=== PATIENT | female | born 1985 | race Caucasian/White ===

== ENCOUNTER 2024-04-28 02:10 | Emergency (ER) | payer OTHER, SELFPAY ==
[2024-04-28 02:27] VITALS: BP 131/85; PULSE 97; RESP 16; TEMP 36.6; O2SAT 98
[2024-04-28 03:29] LABS: Appearance Urine Clear (Clear); Bacteria Urine Rare /hpf; Bilirubin Urine Negative (Negative); Blood Urine Negative (Negative); Color Urine Yellow (Yellow); Glucose Urine UA Negative (Negative); Ketones Urine Negative (Negative); Leukocyte Esterase Ur 2+ LEU/UL (Negative); Nitrate Urine Negative (Negative); Non Pathogenic Casts 0-2; Protein Urine Negative (Negative); Specific Grav Ur 1.027 (1.001-1.035); Squamous Epithelial Cell Urine Few /hpf (Few); WBC Urine 21-50 /hpf (0-3)
[2024-04-28 03:30] LABS: Add Urine Microscopic? YES
[2024-04-28 03:43] LABS: BEDSIDEPREGUCG Negative
--- NOTE | 2024-04-28 05:28 | ED.FEMALEGU ---
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 She thought it was a Bartholin gland cyst based on Internet search. History of trichomonas that was treated and HPV with a normal colposcopy. Sexually active with 1 male partner in the last month. No condom use. Has had symptoms since 04/06/24 which was her LMP. She is having dysuria, urgency and frequency without hematuria. No fevers. Did have one of the areas with some drainage. Having back ache. Related Data Allergies Allergy/AdvReac Type Severity Reaction Status Date / Time No Known Allergies Allergy Unverified 03/04/15 14:56 [facility] Past Medical History Medical History History of human papilloma virus History of trichomoniasis Normal colposcopy Exam Narrative: GENERAL: Well-appearing, well-nourished, and in no acute distress. HEAD: Normocephalic, atraumatic. EYES: Non injected, non icteric ENT: Nares clear, no rhinorrhea or epistaxis. NECK: Supple. CHEST: Speaking in full sentences. No respiratory distress. HEART: Regular rate and rhythm. . ABDOMEN: Soft, nondistended. : No CVA tenderness. Pelvic exam performed with RN as casework supervisor/chemistry research assistant. No cyst/abscess consistent with Bartholin gland involvement but there is a an area of slight firmness at the 7 o'clock position distal to labial structures, without the induration of a clear abscess amenable to drainage. Also has an area of ulceration/fissure in this area. No herpetic lesions. Thick White creamy vaginal discharge in vaginal vault concerning for yeast. Bimanual exam without cervical motion tenderness or adnexal tenderness. EXTREMITIES/BACK: Normal range of motion. No edema. Patient complaining of low back pain (lumbarsacral) and into buttocks. No TTP midline. SKIN: Warm, dry, no rash. NEURO: No focal deficits. Alert and oriented x3. PSYCH: Normal mood and affect. Course Vital Signs Vital signs: Vital Signs Temperature 97.8 F 04/28/24 02:27 Pulse Rate 97 04/28/24 02:27 Respiratory Rate 16 04/28/24 02:27 Blood Pressure 131/85 04/28/24 02:27 Pulse Oximetry 98 04/28/24 02:27 Oxygen Delivery Room Air 04/28/24 02:27 Temperature 97.8 F 04/28/24 02:27 Pulse Rate 72 04/28/24 07:23 Respiratory Rate 16 04/28/24 07:23 Blood Pressure 132/84 04/28/24 07:23 Pulse Oximetry 99 04/28/24 07:23 Oxygen Delivery Room Air 04/28/24 02:27 MDM - Female Genitourinary MDM Narrative Medical decision making narrative: 39 yo female who presents with vaginal discharge and a genital lesion with pain as well as dysuria, urgency, and frequency. Sexually active 1 male partner in the past month without condom use. In the ED she is afebrile with VS that are within normal limits. Lesion is not Bartholin gland. There is a collection of some firmness but not quite an abscess amenable to drainage. Pelvic exam concerning for yeast infection discharge. UA concerning for UTI. She was complaining of back pain but it is low, less concerning for pyelonephritis though considered. Tests positive for trich. First dose of medications given in the ED with the rest of the course prescribed. Stable for discharge with referral to an ObGYn. Later, BV tests positive but patient already on treatment for this (Flagyl 500mg BID x7 d). Differential Diagnosis Differential diagnosis: Likely urinary tract infection (pyelo), bacterial vaginosis, trichomoniasis, cervicitis, cyst of Bartholin's gland, cystitis and other (yea
[2024-04-28 06:31] LABS: Trichomonas Vag PCR DETECTED (NOT DETECTE)
[2024-04-28] MEDS: metroNIDAZOLE 500 MG TABLET PO (06:53)
[2024-04-28] MEDS: FLUCONAZOLE 150 MG TABLET PO (06:54)
[2024-04-28 07:05] LABS: Chlamydia trachomatis NOT DETECTED (NOT DETECTE); Neisseria gonorrhoeae PCR NOT DETECTED (NOT DETECTE)
[2024-04-28] MEDS: SULFAMETHOXAZOLE/TRIMETHOPRIM 800/160 MG DS TABLET 1 TAB PO (07:18)
[2024-04-28 07:23] VITALS: BP 132/84; PULSE 72; RESP 16; O2SAT 99
[2024-04-29 09:44] LABS: Bacterial Vaginosis POSITIVE (NEGATIVE)
== END 2024-04-28 07:23 | disposition home or self-care (01) ==
PROVIDERS: Physician Assistant; Emergency Provider Student in an Organized Health Care Education/Training Program
DX: N39.0 Urinary tract infection, site not specified (principal); B37.31 Acute candidiasis of vulva and vagina; A59.01 Trichomonal vulvovaginitis; N76.0 Acute vaginitis
CPT/HCPCS: 81001; 81025; 81513; 87070; 87077; 87086; 87181; 87255; 87491; 87591; 87661; 99284; A9270